=== PATIENT | male | born 1965 | race Caucasian/White ===

== ENCOUNTER 2016-12-01 05:00 | Inpatient (IN) | payer BC ==
[2016-12-01] VITALS (22 sets, daily range): BP systolic 107–148; BP diastolic 75–103; PULSE 66–82; RESP 9–20; Ht 182.9 cm; Wt 90.9 kg
[~2016-12-01] VITALS: Ht 182.9 cm; Wt 90.9 kg
[2016-12-01] MEDS ORDERED: ONDANSETRON 4 MG INJ IV STA (05:05)
[2016-12-01] MEDS ORDERED: morphine 4 MG/ML VIAL IV STA ×2 (05:05→05:23)
[2016-12-01] MEDS ORDERED: SOD CHLORIDE 0.9% 1,000 ML IV STA (05:05)
[2016-12-01 05:20] LABS: ADD SCAN DIFF NO
[2016-12-01 05:22] LABS: BASOPHIL # 0.1 10^3/ul (0.0-0.1); BASOPHILS % 1.2 % (0.0-2.0); EOSINOPHILS # 0.2 10^3/ul (0.0-0.5); HEMATOCRIT 35.5 % (42.0-52.0); HEMOGLOBIN 11.5 g/dl (14.0-18.0); LYMPHOCYTES # 3.4 10^3/ul (0.8-2.9); LYMPHOCYTES % 39.3 % (15.0-51.0); MEAN CORPUSCULAR HEMOGLOBIN 26.1 pg (29.0-33.0); MEAN CORPUSCULAR HGB CONC 32.4 g/dl (32.0-37.0); MEAN CORPUSCULAR VOLUME 80.5 fl (82.0-101.0); MEAN PLATELET VOLUME 10.9 fl (7.4-10.4); MONOCYTE # 0.7 10^3/ul (0.3-0.9); MONOCYTES % 7.7 % (0.0-11.0); NEUTROPHIL # 4.2 10^3/ul (1.6-7.5); NEUTROPHILS % 49.3 % (39.0-77.0); PLATELET COUNT 263 10^3/UL (140-415); RED BLOOD COUNT 4.41 10^6/ul (4.70-6.10); RED CELL DISTRIBUTION WIDTH 12.4 % (11.5-14.5); WHITE BLOOD COUNT 8.6 10^3/ul (4.8-10.8)
--- NOTE | 2016-12-01 05:26 | ERA ---
ER Documentation Chief Complaint Date/Time DATE: 12/01/16 TIME: 05:19 Chief Complaint KEON CHUNG from home c/o chest pressure pain on & off since yesterday HPI This is a 51-year-old male brought in by rescue from home with complaints of chest pressure on and off since yesterday. Said today it woke him up and he was cool and diaphoretic. Field EKG read as STEMI. Patient on aspirin and nitro in the field. Mild shortness of breath. Code STEMI called immediately. Dr. Lee notified. ROS All systems reviewed and are negative except as per history of present illness. Allergies Allergies: Coded Allergies: No Known Allergy (Unverified , 12/01/16) PMhx/Soc History of Surgery: No Anesthesia Reaction: No Hx Neurological Disorder: No Hx Respiratory Disorders: No Hx Cardiac Disorders: Yes (HTN) Hx Psychiatric Problems: No Hx Miscellaneous Medical Probl: No Hx Alcohol Use: Yes Hx Substance Use: No Hx Tobacco Use: No Smoking Status: Former smoker Physical Exam Vitals Vital Signs Date Time Temp Pulse Resp B/P Pulse Ox O2 Delivery O2 Flow Rate FiO2 12/01/16 05:13 100 3.0 12/01/16 05:11 Nasal Cannula 2 12/01/16 05:06 97.6 73 15 145/97 98 Physical Exam Const: [] Head: Atraumatic Eyes: Normal Conjunctiva ENT: Normal External Ears, Nose and Mouth. Neck: Full range of motion..~ No meningismus. Resp: Clear to auscultation bilaterally Cardio: Regular rate and rhythm, no murmurs Abd: Soft, non tender, non distended. Normal bowel sounds Skin: No petechiae or rashes Back: No midline or flank tenderness Ext: No cyanosis, or edema Neur: Awake and alert Psych: Normal Mood and Affect Results 24 hrs Current Medications Medications (Trade) Dose Ordered Sig/Azar Route PRN Reason Start Time Stop Time Status Last Admin Dose Admin Sodium Chloride (NS) 1,000 ml @ 1,000 mls/hr Q1H STAT IV 12/01/16 05:05 12/01/16 06:04 12/01/16 05:16 Morphine Sulfate (morphine) 4 mg ONCE STAT IV 12/01/16 05:05 12/01/16 05:07 DC 12/01/16 05:16 Ondansetron HCl (Zofran Inj) 4 mg ONCE STAT IV 12/01/16 05:05 12/01/16 05:07 DC 12/01/16 05:16 Procedures/MDM EKG: Rate/Rhythm: [Normal Sinus Rhythm] QRS, ST, T-waves: [No changes consistent w/ acute ischemia] Impression: ST elevations in 2 3 and aVF Chest X-ray 1V Interpreted by me: Soft Tissue: No acute abnormalities Bones: No acute abnormalities Mediastinum/Cardiac Silhouette/Lungs: [No acute abnormalities] Patient's symptoms are concerning for cardiac cause will require inpatient workup and continuous monitoring. Further w/u for ischemia, arrhythmia, PE or dissection will be deferred to the inpatient team. Patient will be taken to [facility] by on-call cardiology Accepting Care Team: Current data and ongoing care discussed. Time: 5:20 AM Primary Provider: Dr. Dukes Consulting: Dr. Lee Outstanding Data: none Critical Care: Time: 45 minutes Treatments/Evaluations: Close monitoring and treatment of unstable vital signs, cardiorespiratory, and neurologic status, while maintaining tight balance of fluid, respiratory, and cardiac interventions. This time is s independent from separate billable procedures Departure Diagnosis: Primary Impression: Chest pain Qualified Code: I20.0 - Unstable angina pectoris Additional Impression: STEMI (ST elevation myocardial infarction) Qualified Code: I21.11 - ST elevation myocardial infarction involving right coronary artery Condition: Critical LEAH CAMARA Dec 01, 2016 05:25
[2016-12-01] MEDS ORDERED: LIDOCAINE 1% (MDV) 20 ML INJ ONE (05:27)
[2016-12-01] MEDS ORDERED: IODIXANOL LOCM 100 ML BTL ONE ×2 (05:27→06:34)
[2016-12-01] MEDS ORDERED: NITROGLYCERIN (IC) 100 MCG/ML INJ ONE (05:28)
--- NOTE | 2016-12-01 05:29 | RADRPT ---
PROCEDURE: XR Chest. CLINICAL INDICATION: Chest pain. Acute DE. TECHNIQUE: Portable single view of the chest COMPARISON: None. FINDINGS: Shallow lung inflation accentuates the heart size which may be slightly enlarged. There is mild pul monary vascular congestion without focal infiltrate or pleural effusion. No overt congestive heart failure. No definite acute bony abnormality. IMPRESSION: Probable mild cardiomegaly and pulmonary vascular congestion. RPTAT: HLBE Hiwot Hampton Physician Date Time Electronically viewed and signed by Hiwot Hampton Physician on 12/01/2016 05:28 LE/
[2016-12-01] MEDS ORDERED: VERAPAMIL 5 MG INJ ONE (05:35)
[2016-12-01] MEDS ORDERED: HEPARIN 1000 UNITS/ML 10 ML INJ ONE (05:35)
[2016-12-01 05:41] LABS: INR 0.9; PROTIME 12.1 Sec (12.2-14.2); PT RATIO 0.9
[2016-12-01 05:42] LABS: PARTIAL THROMBOPLASTIN TIME 25.1 Sec (25.0-35.0)
[2016-12-01 05:44] LABS: ALBUMIN 4.4 g/dl (3.3-4.9); ALBUMIN/GLOBULIN RATIO 1.46; BILIRUBIN,INDIRECT 0.1 mg/dl (0-1.1); BILIRUBIN,TOTAL 0.1 mg/dl (0.2-1.3); CALCIUM 9.1 mg/dl (8.4-10.2); CREATININE 0.89 mg/dl (0.61-1.24); POTASSIUM 3.7 mmol/L (3.5-5.1); TOTAL PROTEIN 7.4 g/dl (6.1-8.1)
[2016-12-01] MEDS ORDERED: FENTAnyl 50 MCG/ML VIAL ONE (05:51)
[2016-12-01] MEDS ORDERED: MIDAZOLAM 1 MG/ML 2 ML INJ ONE (05:51)
--- NOTE | 2016-12-01 05:52 | CONS ---
Date/Time of Note Date/Time of Note DATE: 12/01/16 TIME: 05:47 Assessment/Plan Assessment/Plan Chief Complaint/Hosp Course 51 yo with stemi of inferior wall Problems: Additional Assessment/Plan Imp: STEMI inferior wall htn and hchol controlled with diet occasional smoker Plan: cath and pci. Risks and benefits reviewed and he agrees to proceed, all questions answered. Further plans to come after cath. He has gotten asa, will give heparin in the cardiac cath rn Will get statin therapy, beta blockade, and counseling on lifestyle, diet, exercise Consultation Date/Type/Reason Admit Date/Time 12/01/16 Date of Consultation: Dec 01, 2016 Type of Consultation: interventional cardiology Reason for Consultation stemi Referring Provider: LEAH CAMARA Hx of Present Illness 51 yo with very strong family history of cad (father of mi at 55, brother with multiple mi's starting at 35) presents with stuttering chest pain that started at 2 pm yesterday, persistent this morning, a/w diaphoresis and vomiting. Pain present now. Has h/o htn and dyslipidemia treated with diet alone. He smokes socially, last cigarette 2 months ago. Constitutional: no complaints Eyes: no complaints ENT: no complaints Respiratory: no complaints Cardiovascular: chest pain Gastrointestinal: vomiting Genitourinary: no complaints Musculoskeletal: no complaints Skin: no complaints Neurologic: no complaints Endocrine: no complaints Psychological: nl mood/affect, no complaints Past Medical History Medical History: high cholesterol, hypertension Past Surgical History Past Surgical Hx: no surgical history Family History Significant Family History: heart disease Social History Smoking Status: Current some day smoker Exam/Review of Systems Vital Signs Vitals Vital Signs Date Time Temp Pulse Resp B/P Pulse Ox O2 Delivery O2 Flow Rate FiO2 12/01/16 05:35 69 20 131/91 100 Nasal Cannula 2.0 12/01/16 05:06 97.6 Exam Constitutional: alert, oriented, well developed Psych: nl mood/affect, no complaints Head: atraumatic, normocephalic Eyes: EOMI, PERRL, nl conjunctiva, nl lids, nl sclera ENMT: nl external ears & nose, nl lips & teeth, nl nasal mucosa & septum Neck: supple, No bruits, No jvd Respiratory: clear to auscultation, normal air movement Cardiovascular: nl pulses, regular rate and rhythm, No jugular venous distention (JVD), No murmurs/extra sounds Gastrointestinal: nl liver, spleen, non-tender, soft Musculoskeletal: nl extremities to inspection Extremities: normal pulses Neurological: MAIL EXAMINER II-XII intact, nl mental status, nl speech, nl strength Skin: nl turgor, No rash or lesions Lymph: nl lymph nodes Results ekg shows st elevations in 2, 3, AVF, in nsr Result Diagram: 12/01/16 0455 Results 24 hrs Laboratory Tests Test 12/01/16 04:55 White Blood Count 8.6 Red Blood Count 4.41 L Hemoglobin 11.5 L Hematocrit 35.5 L Mean Corpuscular Volume 80.5 L Mean Corpuscular Hemoglobin 26.1 L Mean Corpuscular Hemoglobin Concent 32.4 Red Cell Distribution Width 12.4 Platelet Count 263 Mean Platelet Volume 10.9 H Neutrophils % 49.3 Lymphocytes % 39.3 Monocytes % 7.7 Eosinophils % 2.0 Basophils % 1.2 Nucleated Red Blood Cells % 0.0 Neutrophils # 4.2 Lymphocytes # 3.4 H Monocytes # 0.7 Eosinophils # 0.2 Basophils # 0.1 Nucleated Red Blood Cells # 0.0 Prothrombin Time 12.1 L Prothrombin Time Ratio 0.9 INR International Normalized Ratio 0.90 Activated Partial Thromboplast Time 25.1 ROBERT SANTIAGO Dec 01, 2016 05:52
[2016-12-01 06:03] LABS: TROPONIN-I 0.253 ng/ml (0.00-0.12)
[2016-12-01] MEDS ORDERED: morphine 10 MG INJ ONE (06:08)
[2016-12-01] MEDS ORDERED: IODIXANOL LOCM 50 ML BTL ONE (06:13)
[2016-12-01] MEDS ORDERED: METOPROLOL 5 MG INJ ONE (06:20)
[2016-12-01] MEDS ORDERED: PRASUGREL HYDROCHLORIDE 10 MG TABLET PO ONE (06:53)
--- NOTE | 2016-12-01 07:17 | HP ---
Date/Time of Note Date/Time of Note DATE: 12/01/16 TIME: 07:03 Assessment/Plan VTE Prophylaxis VTE Prophylaxis Intervention: heparin, other Lines/Catheters IV [facility]ter [facility]from [facility] Saline Lock Assessment/Plan Chief Complaint/Hosp Course This is a 51-year-old male will be admitted to the ICU floor for: #1 STEMI: Aspirin was given in the ED. EKG shows ST elevations in the inferior leads II and aVF. STEMI protocol was initiated, interventional cardiology is on the way and patient patient will be taken to the [facility]. Awaiting troponin level continue to trend. Further recommendations as per cardiology after the cath. Patient will be admitted to the ICU after undergoing his cardiac cath. #2 hypertension: Not on any outpatient medications. Will continue to monitor blood pressure while in-house and start on any medications if indicated. #3 hyperlipidemia: Currently not on medications likely will need to be started on his high-dose statin. #4 DVT and GI prophylaxis: Anticoagulation as per cardiology, Protonix. Further treatment strategy will be implemented as per the clinical course Greater than 40 minutes of critical care time was spent on history and physical and assessment and plan this patient. Problems: HPI/ROS Admit Date/Time Admit Date/Time 12/01/16 Hx of Present Illness Chief complaint: Chest pain This is a 51 yo male who presents to the ED with chest pain that started yesterday at approximately 2 PM. He states that he first noticed it when he was driving his car. He then in felt that again later on it was a pressure- like sensation that radiated to bilateral shoulders. He experienced diaphoresis and nausea and vomiting. He has a very strong family history of cad with his father who of mi at 55, brother with multiple mi's starting at 35. Patient states that he was given nitro and morphine he did receive relief in the ED. He right now continues to have pain which is 6 out of 10. Allergies: NKDA Medications: None ROS Const: As per Eyes : No pain discharge or redness or change in visual acuity ENT: No pain, sore throat, congestion, congestion, dysphagia or discharge Respiratory: As per HPI Cardiovascular: As per HPI GI : no change in appetite, abdominal pain, nausea, vomiting, diarrhea, constipation, or change in the color his stool Genitourinary: No dysuria, hematuria, flank pain , discharge or CVA tenderness Musculoskeletal: No joint pain, back pain, neck pain, restricted range of motion in neck or joints Skin: No rash, bruising or hives Neuro: No headache, dizziness, syncope, seizure, focal weakness Endocrine: No polyuria, polydipsia, temperature intolerance Psych: No hallucination, depression, anxiety or suicidal ideation Eyes: no complaints ENT: no complaints Respiratory: no complaints Cardiovascular: chest pain Gastrointestinal: vomiting Genitourinary: no complaints Musculoskeletal: no complaints Skin: no complaints Neurologic: no complaints Psychological: nl mood/affect, no complaints PMH/Family/Social Past Medical History Hypertension, hyperlipidemia Medical History: high cholesterol, hypertension Past Surgical History Past Surgical Hx: no surgical history Family History Significant Family History: heart disease (Father IA 2, brother heart disease) Social History Alcohol Use: none Smoking Status: Current some day smoker Drug Use: none Exam/Review of Systems Vital Signs Vitals Vital Signs Date Time Temp Pulse Resp B/P Pulse Ox O2 Delivery O2 Flow Rate FiO2 12/01/16 05:35 69 20 131/91 100 Nasal Cannula 2.0 12/01/16 05:06 97.6 Exam Exam General: Patient is well-developed male who appears mildly anxious and complaining of chest pressure. HEENT: Atraumatic, normocephalic. The pupils are equal, round and reactive. Extraocular motor are intact Neck: Supple with full range of motion. No rigidity or meningismus Chest: Nontender Lungs: Clear to auscultation bilaterally no crackles rales or wheezing Heart: Normal S1-S2, Regular rhythm and rate. No murmur, S3, or S4 Abdomen: Soft , nontender, nondistended , bowel sounds are present. No guarding no rebound tenderness , No masses or organomegaly. No costovertebral temporal angle mass Extremities: Normal to inspection, no edema no cyanosis Neurologic: Normal mental status, speech normal, cranial nerves II through XII are intact, motor and sensory are intact, no focal weakness Additional Comments EKG ST elevations in 2 3 and aVF, normal sinus rhythm PROCEDURE: XR Chest. CLINICAL INDICATION: Chest pain. Acute IA. TECHNIQUE: Portable single view of the chest COMPARISON: None. FINDINGS: Shallow lung inflation accentuates the heart size which may be slightly enlarged. There is mild pulmonary vascular congestion without focal infiltrate or pleural effusion. No overt congestive heart failure. No definite acute bony abnormality. IMPRESSION: Probable mild cardiomegaly and pulmonary vascular congestion. Labs Result Diagram: 12/01/16 0455 12/01/16 0455 CAN PERES Dec 01, 2016 07:13
--- NOTE | 2016-12-01 07:34 | EN ---
Date/Time of Note Date/Time of Note DATE: 12/01/16 TIME: 07:26 Event Note Cardiology Cardiology Event Note Cardiac Catheterization Report Date of Procedure: December 01, 2016 Pre-Procedure Dx: STEMI of the inferior wall Post-Procedure Dx: STEMI of inferior wall due to occlusion of proximal RCA Procedures performed: Coronary angiography, left heart catheterization, left ventriculography, angioplasty and stent placement to the proximal RCA Findings: Left main normal LAD normal proximally. It tapers down quite suddenly in the mid portion. A small to moderate sized diagonal branch has an 80% mid lesion. LCX is small and nondominant, with a 50% lesion proximally The right coronary is completely occluded. The lesion is proximal, and is a heavily calcified lesion. Preprocedure gilda 0, postprocedure gilda 3. 100% occluded before, 0% occluded after. This is a type C lesion due to heavy calcification requiring multiple balloon inflations including noncompliant balloons. A 3.5 x 16 mm drug-eluting stent was placed. LVEDP was 26. LVEF 60% with inferobasal akinesis. Indications: Patient presented with chest pain starting yesterday, was stuttering in nature, and persistent this morning. EKG shows ST elevations in inferior leads with reciprocal changes. Informed consent obtained. Patient received sedation with versed and fentanyl. Then access obtained in right radial artery after Bolivar's test, modified Seldinger technique used, 6F sheath placed. Through the sheath, heparin 4000 units, verapamil 2.5 mg and ntg 200 mcg given. Using a J-wire, Edwin catheter advanced to the aortic root, engaged the LM, and then a JR4 guide used to engage the RCA. Images taken with injection of contrast. It was decided to intervene on the right coronary. An additional 3000 units of heparin given, ACT checked, and the patient received a total of 9000 units of heparin duringi the procedure. A JR4 catheter was used. A Luge wire passed through the lesion, and dilated with a 2.5x12 mm balloon. A stent would not pass, and multiple balloon inflations, including several noncompliant balloons, up to a 3.5x15 mm balloon, were required to dilate the lesion. After balloon dilations, there was a small dissection visualized, but that was covered with the stent. A 3.5 x 16 mm drug-eluting stent was placed. Images obtained including a wire out shot demonstrating good apposition of the stent and gilda 3 flow. Then left ventriculography performed, pullback gradient measured. All catheter exchanges done over a 260-cm J wire. At the end of the case, the radial sheath was removed and replaced with a TR band. Patient loaded with Effient 60 mg at the end of the case. Discussion: STEMI due to occlusion of the right coronary artery, hypertension and dyslipidemia with medication noncompliance at home. Drug-eluting stent placed to the proximal RCA. Plan is for admission, observation overnight, and likely discharge tomorrow on 12/02/16. ROBERT SANTIAGO Dec 01, 2016 07:34
[2016-12-01 08:00] LABS: CHOL/HDL RATIO 6.1 RATIO
[2016-12-01] MEDS ORDERED: ASPIRIN 81 MG TAB PO ONE (08:30)
[2016-12-01] MEDS ORDERED: SOD CHLORIDE 0.9% 500 ML IV SCH (08:30)
[2016-12-01] MEDS: VALSARTAN 80 MG TAB PO SCH (08:49)
[2016-12-01] MEDS ORDERED: METOPROLOL (XL) 25 MG TAB PO SCH (09:00)
[2016-12-01] MEDS: ASPIRIN 81 MG TAB PO SCH (09:00)
--- NOTE | 2016-12-01 20:12 | RADRPT ---
Echocardiogram Report Patient Name: LORRAINE GUZMAN Gender: Male Date: 1965 Study Date: 01-Dec-2016 Automation Architect: Taryn [facility] Location: 109 Ref. Physician: CAN PERES Quality: Adequate Procedures: Transthoracic echocardiogram with complete 2D, M-Mode, and doppler examination. Indications: STEMI. 2D/M Mode Doppler Measurement Value Normal Ranges Measurement Value Normal Ranges LVIDd 2D 4.8 3.5 - 5.6 cm AV Peak Marvin 1.2 m/sec LVIDs 2D 3.5 2.1 - 4.1 cm AV Peak PG 6.0 mmHg FS 2D 27.6 % LVOT Peak Marvin 1.0 m/sec LVPWd 2D 1.0 0.6 - 1.1 cm LVOT Peak PG 4.0 mmHg IVSd 2D 1.1 0.6 - 1.1 cm MR Peak PG 40.0 mmHg IVS/LVPW 2D 1.1 MR Peak Marvin 3.2 m/sec AoR Diam 2D 2.4 2.0 - 3.7 cm TR Peak Marvin 1.5 m/sec LA/Ao 2D 2 0 - 1 TR Peak PG 9.0 mmHg EDV 2D 112.0 cm3 ESV 2D 42.5 cm3 LA Dimen 2D 4.4 2.3 - 4.0 cm Findings Left Ventricle: Normal left ventricular systolic function. Normal left ventricular cavity size. Ejection fraction is visually estimated at 55 %. Tissue Doppler/Mitral Doppler indices are consistent with impaired relaxation (Stage I diastolic dysfunction). These segments of the LV are hypokinetic inferior base segment and inferior mid segment. Right Ventricle: Normal right ventricular size. Normal right ventricular systolic function. Left Atrium: There is mild enlargement of left atrium. Right Atrium: The right atrium is normal in size. Mitral Valve: Mild mitral leaflet calcification. Mild mitral annular calcification. Mild mitral valve regurgitation. Aortic Valve: Aortic cusps appear mildly calcified. Aortic valve opens normally. Trace aortic valve regurgitation. Tricuspid Valve: Normal appearance and function of the tricuspid valve with trace physiologic regurgitation. Pulmonic Valve: Pulmonic valve not well visualized. There is trace pulmonic regurgitation. Pericardium: Normal pericardium with no significant pericardial effusion. Aorta: Normal aortic root. IVC: Normal size and normal respiratory collapse consistent with normal right atrial pressure. Conclusions Fair quality study. Normal left ventricular systolic function. Inferobasal hypokinesis Mild mitral regurgitation. Electronically Signed By: Alla Kumari 01-Dec-2016 20:11:45 -0700 Patient Name: LORRAINE GUZMAN Study Date: 01-Dec-2016 [id number]
[2016-12-01] MEDS ORDERED: ATORVASTATIN 80 MG TAB PO SCH (21:00)
[2016-12-02] VITALS (12 sets, daily range): BP systolic 108–130; BP diastolic 73–91; PULSE 71–89; RESP 15–19
[2016-12-02 05:07] LABS: ADD SCAN DIFF NO
[2016-12-02 05:14] LABS: BASOPHIL # 0.1 10^3/ul (0.0-0.1); BASOPHILS % 0.6 % (0.0-2.0); EOSINOPHILS # 0.1 10^3/ul (0.0-0.5); EOSINOPHILS % 1.7 % (0.0-7.0); HEMATOCRIT 33.4 % (42.0-52.0); HEMOGLOBIN 10.7 g/dl (14.0-18.0); LYMPHOCYTES # 2.8 10^3/ul (0.8-2.9); LYMPHOCYTES % 32.5 % (15.0-51.0); MEAN CORPUSCULAR HEMOGLOBIN 25.8 pg (29.0-33.0); MEAN CORPUSCULAR VOLUME 80.5 fl (82.0-101.0); MONOCYTE # 0.8 10^3/ul (0.3-0.9); MONOCYTES % 9.3 % (0.0-11.0); NEUTROPHIL # 4.7 10^3/ul (1.6-7.5); NEUTROPHILS % 55.7 % (39.0-77.0); PLATELET COUNT 261 10^3/UL (140-415); RED BLOOD COUNT 4.15 10^6/ul (4.70-6.10); WHITE BLOOD COUNT 8.5 10^3/ul (4.8-10.8)
[2016-12-02 05:25] LABS: MAGNESIUM 1.9 mg/dl (1.7-2.5); PHOSPHORUS 4.1 mg/dl (2.5-4.9)
[2016-12-02 05:47] LABS: CALCIUM 9.1 mg/dl (8.4-10.2); CREATININE 0.77 mg/dl (0.61-1.24); POTASSIUM 3.5 mmol/L (3.5-5.1)
[2016-12-02] MEDS ORDERED: PANTOPRAZOLE 40 MG INJ IV SCH (06:00)
[2016-12-02] MEDS: VALSARTAN 80 MG TAB PO SCH (08:06)
[2016-12-02] MEDS: ASPIRIN 81 MG TAB PO SCH (08:06)
[2016-12-02] MEDS ORDERED: METOPROLOL (XL) 50 MG TAB PO SCH (09:00)
[2016-12-02] MEDS ORDERED: PRASUGREL HYDROCHLORIDE 10 MG TABLET PO SCH ×2 (09:00)
--- NOTE | 2016-12-02 09:58 | PN ---
Date/Time of Note Date/Time of Note DATE: 12/02/16 TIME: 09:54 Assessment/Plan VTE Prophylaxis VTE Prophylaxis Intervention: ambulation Lines/Catheters IV Catheter Type (from Nrs): Peripheral IV Assessment/Plan Chief Complaint/Hosp Course 51 yo with stemi of inferior wall Problems: Assessment/Plan Imp: Inferior wall STEMI, post pci/stent to prox RCA Hypertension, controlled Dyslipidemia with low HDL and high tg's. ASA and Effient for one year. Explained importance of dual antiplatelet therapy to keep stent open Atorvastatin 80, metoprolol xl 50 daily, valsartan 80 mg daily Reiterated importance of medication compliance, if issues or side effects perceived from the medicines he should let me know before stopping a medicine Counselled him extensively on lifestyle, exercise, plant-based diet Okay for discharge today, follow with me in 1-2 weeks Patient has stent card for Realeyes 3D stent, also has my business card for my [place] office. Subjective 24 Hr Interval Summary Free Text/Dictation Slight twinges of pain overnight, no events. No discomfort at wrist cath site. Exam/Review of Systems Vital Signs Vitals Vital Signs Date Time Temp Pulse Resp B/P Pulse Ox O2 Delivery O2 Flow Rate FiO2 12/02/16 08:00 81 15 124/91 96 Room Air 12/02/16 07:00 97.7 12/01/16 05:35 2.0 Intake and Output 12/01/16 12/01/16 12/02/16 15:00 23:00 07:00 Intake Total 480 ml 600 ml 250 ml Output Total 700 ml 1000 ml 950 ml Balance -220 ml -400 ml -700 ml Exam Constitutional: alert, oriented, well developed Psych: nl mood/affect, no complaints Head: atraumatic, normocephalic Eyes: EOMI, PERRL, nl conjunctiva, nl lids, nl sclera ENMT: nl external ears & nose, nl lips & teeth, nl nasal mucosa & septum Neck: supple, No bruits, No jvd Respiratory: clear to auscultation, normal air movement Cardiovascular: nl pulses (right radial pulse intact, hand warm, good information systems specialist strength), regular rate and rhythm Gastrointestinal: nl liver, spleen, non-tender, soft Musculoskeletal: nl extremities to inspection Extremities: normal pulses, No edema Neurological: nl mental status, nl speech Skin: nl turgor, No rash or lesions Results Result Diagram: 12/02/16 0440 12/02/16 0440 Results 24 hrs Laboratory Tests Test 12/02/16 04:40 White Blood Count 8.5 Red Blood Count 4.15 L Hemoglobin 10.7 L Hematocrit 33.4 L Mean Corpuscular Volume 80.5 L Mean Corpuscular Hemoglobin 25.8 L Mean Corpuscular Hemoglobin Concent 32.0 Red Cell Distribution Width 13.0 Platelet Count 261 Mean Platelet Volume 11.0 H Neutrophils % 55.7 Lymphocytes % 32.5 Monocytes % 9.3 Eosinophils % 1.7 Basophils % 0.6 Nucleated Red Blood Cells % 0.0 Neutrophils # 4.7 Lymphocytes # 2.8 Monocytes # 0.8 Eosinophils # 0.1 Basophils # 0.1 Nucleated Red Blood Cells # 0.0 Sodium Level 143 Potassium Level 3.5 Chloride Level 101 Carbon Dioxide Level 27 Anion Gap 19 #H Blood Urea Nitrogen 11 # Creatinine 0.77 Glucose Level 100 Hemoglobin A1c 5.5 Calcium Level 9.1 Phosphorus Level 4.1 Magnesium Level 1.9 Troponin I 7.470 *H Medications Medications Current Medications Pantoprazole (Protonix Iv) 40 mg DAILY@06 IV ; Start 12/02/16 at 06:00 Miscellaneous Information (* Miscellaneous Pharmacy Order) Hold all Metformin ... ONCE XX Last administered on 12/01/16 07:58; Admin Dose 1 EA; Start at 07:30; Stop 12/03/16 at 07:29 Aspirin (Aspirin) 81 mg DAILY PO Last administered on 12/02/16 08:06; Admin Dose 81 MG; Start 12/01/16 at 09:00 Atorvastatin Calcium (Lipitor) 80 mg HS PO Last administered on 12/01/16 21:00 ; Admin Dose 80 MG; Start 12/01/16 at 21:00 Valsartan (Diovan) 80 mg DAILY PO Last administered on 12/02/16 08:06; Admin Dose 80 MG; Start 12/01/16 at 09:00 Prasugrel (Effient) 10 mg DAILY PO Last administered on 12/02/16 08:06; Admin Dose 10 MG; Start 12/02/16 at 09:00 Metoprolol Succinate (Toprol Xl) 50 mg DAILY PO Last administered on 12/02/16 08:05; Admin Dose 50 MG; Start 12/02/16 at 09:00 Procedures Procedures Echo shows normal LVEF, focal hypokinesis of the inferior base. EKG this am demonstrates NSR, ST elevations resolved ROBERT SANTIAGO Dec 02, 2016 09:58
--- NOTE | 2016-12-02 10:04 | PDOCDIS ---
Discharge Instructions CONDITION Patient Condition: Good HOME CARE INSTRUCTIONS: Diet Instructions: Reduced Calorie ACTIVITY: Activity Restrictions: No Restrictions FOLLOW UP/APPOINTMENTS Follow-up Plan F/U WITH YOUR PCP IN 1-2 WEEKS, F/U WITH CARDIOLOGY INSTRUCTED KEVIN SUTHERLAND Dec 02, 2016 10:04
[2016-12-02] MEDS ORDERED: METO50TA16 PO (10:06)
[2016-12-02] MEDS ORDERED: ATOR80TA75 PO (10:06)
[2016-12-02] MEDS ORDERED: PRAS10TA6 PO (10:06)
[2016-12-02] MEDS ORDERED: VALS80TA29 PO (10:06)
[2016-12-02] MEDS ORDERED: ASPI81TA3 PO (10:06)
--- NOTE | 2016-12-02 13:56 | DS ---
Date/Time of Note Date/Time of Note DATE: 12/02/16 TIME: 13:55 Discharge Summary Admission/Discharge Info Admit Date/Time Dec 01, 2016 at 07:57 Discharge Date/Time Dec 02, 2016 at 11:20 Discharge Diagnosis Inferior wall STEMI, post pci/stent to prox RCA-DC with cardiac meds Hypertension, controlled-DC with Diovan and beta-nicky Dyslipidemia with low HDL and high tg's-DC with high-dose statin Patient Condition: Good Hospital Course Patient is 51-year-old male presents with chest pain was found to have STEMI patient found to have RCA occlusion and had stent placement. Patient started on cardiac meds felt to be stable for DC per cardiology. On the of DC patient' s vitals labs and physical exam stable. Of note patient echo showed EF 55% with some hypokinesis in the inferior wall. Home Meds Active Scripts Aspirin (Aspirin) 81 Mg Chew, 81 MG PO DAILY, #90 TAB 3 Refills Prov:KEVIN SUTHERLAND 12/02/16 Valsartan (Valsartan) 80 Mg Tablet, 80 MG PO DAILY, #60 TAB 1 Refill Prov:KEVIN SUTHERLAND 12/02/16 Metoprolol Succinate* (Toprol XL*) 50 Mg Tab.er.24h, 50 MG PO DAILY, #60 1 Refill Prov:KEVIN SUTHERLAND 12/02/16 Atorvastatin* (Atorvastatin*) 80 Mg Tablet, 80 MG PO HS, #60 TAB 1 Refill Prov:KEVIN SUTHERLAND 12/02/16 Prasugrel Hydrochloride* (Effient*) 10 Mg Tablet, 10 MG PO DAILY, #60 TAB 3 Refills Prov:KEVIN SUTHERLAND 12/02/16 Primary Care Provider Aden Andrade Time spent on discharge: > 30 minutes Pending Labs Laboratory Tests Test 12/02/16 04:40 White Blood Count 8.510^3/ul (4.8-10.8) Red Blood Count 4.1510^6/ul (4.70-6.10) Hemoglobin 10.7g/dl (14.0-18.0) Hematocrit 33.4% (42.0-52.0) Mean Corpuscular Volume 80.5fl (82.0-101.0) Mean Corpuscular Hemoglobin 25.8pg (29.0-33.0) Mean Corpuscular Hemoglobin Concent 32.0g/dl (32.0-37.0) Red Cell Distribution Width 13.0% (11.5-14.5) Platelet Count 05035^3/UL (140-415) Mean Platelet Volume 11.0fl (7.4-10.4) Neutrophils % 55.7% (39.0-77.0) Lymphocytes % 32.5% (15.0-51.0) Monocytes % 9.3% (0.0-11.0) Eosinophils % 1.7% (0.0-7.0) Basophils % 0.6% (0.0-2.0) Nucleated Red Blood Cells % 0.0/100WBC (0.0-0.0) Neutrophils # 4.710^3/ul (1.6-7.5) Lymphocytes # 2.810^3/ul (0.8-2.9) Monocytes # 0.810^3/ul (0.3-0.9) Eosinophils # 0.110^3/ul (0.0-0.5) Basophils # 0.110^3/ul (0.0-0.1) Nucleated Red Blood Cells # 0.010^3/ul (0.0-0.0) Sodium Level 143mmol/L (135-144) Potassium Level 3.5mmol/L (3.5-5.1) Chloride Level 101mmol/L (97-110) Carbon Dioxide Level 27mmol/L (21-31) Anion Gap 19 (8-16) Blood Urea Nitrogen 11mg/dl (7-20) Creatinine 0.77mg/dl (0.61-1.24) Glucose Level 100mg/dl (70-220) Hemoglobin A1c 5.5% (0-5.9) Calcium Level 9.1mg/dl (8.4-10.2) Phosphorus Level 4.1mg/dl (2.5-4.9) Magnesium Level 1.9mg/dl (1.7-2.5) Troponin I 7.470ng/ml (0.00-0.12) KEVIN SUTHERLAND Dec 02, 2016 13:56 (0.61-1.24) Glucose Level 100mg/dl (70-220) Hemoglobin A1c 5.5% (0-5.9) Calcium Level 9.1mg/dl (8.4-10.2) Phosphorus Level 4.1mg/dl (2.5-4.9) Magnesium Level 1.9mg/dl (1.7-2.5) Troponin I 7.470ng/ml (0.00-0.12) KEVIN SUTHERLAND Dec 02, 2016 13:56
--- NOTE | 2016-12-03 11:09 | RADRPT ---
Vent Rate: 71 bpm RR Interval: 0 msec [place] Interval: 184 msec QRS Duration: 96 msec QT Interval: 400 msec QTC Interval: 434 msec P-R-T [place]: 22 - 26 - 37 degrees Normal sinus rhythm Inferior infarct , possibly acute Abnormal ECG Electronically Signed By: Bhupinder Zamora [id number]
--- NOTE | 2016-12-03 11:10 | RADRPT ---
Vent Rate: 75 bpm RR Interval: 0 msec [place] Interval: 198 msec QRS Duration: 96 msec QT Interval: 402 msec QTC Interval: 448 msec P-R-T [place]: 44 - 23 - 4 degrees Normal sinus rhythm Normal ECG Electronically Signed By: Bhupinder Zamora [id number]
== END 2016-12-02 11:20 | disposition home or self-care (01) | DRG 247 ==
LOC: E/R 05:00 → ICU 07:57
PROVIDERS: ADMIT Family Medicine; ATTEND Family Medicine
PROC: 4A023N7 Measurement of Cardiac Sampling and Pressure, Left Heart, Percutaneous Approach (ICD-10-PCS; 2016-12-01)
PROC: 027034Z Dilation of Coronary Artery, One Artery with Drug-eluting Intraluminal Device, Percutaneous Approach (ICD-10-PCS; principal; 2016-12-01 05:45)
DX: I21.3 ST elevation (STEMI) myocardial infarction of unspecified site (principal); I10 Essential (primary) hypertension; F17.200 Nicotine dependence, unspecified, uncomplicated; E78.5 Hyperlipidemia, unspecified
CPT/HCPCS: 36415; 71010; 80048; 80053; 80061; 83036; 83735; 83880; 84100; 84484; 85025; 85610; 85730; 87081; 93005; 93306; 96374; 96375; C1725; C1769; C1874; C1887; C9113; C9606; J1644; J2250; J2270; J2405; J3010; J7030; Q9967

== ENCOUNTER 2017-02-06 09:43 | Emergency (ER) | payer BC ==
[~2017-02-06] VITALS: Ht 182.9 cm; Wt 89.0 kg
[~2017-02-06 09:43] MED LIST: ASPI81TA3 PO; ATOR80TA75 PO; METO50TA16 PO; PRAS10TA6 PO; VALS80TA29 PO
[2017-02-06 09:46] VITALS: Ht 182.9 cm; Wt 89.0 kg
[2017-02-06 10:57] LABS: ABNORMAL IP MESSAGE 1; BASOPHIL # 0.1 10^3/ul (0.0-0.1); BASOPHILS % 1.1 % (0.0-2.0); EOSINOPHILS # 0.2 10^3/ul (0.0-0.5); EOSINOPHILS % 3.4 % (0.0-7.0); HEMOGLOBIN 7.8 g/dl (14.0-18.0); LYMPHOCYTES # 2.1 10^3/ul (0.8-2.9); LYMPHOCYTES % 32.2 % (15.0-51.0); MEAN CORPUSCULAR HEMOGLOBIN 21.3 pg (29.0-33.0); MEAN CORPUSCULAR HGB CONC 28.9 g/dl (32.0-37.0); MEAN CORPUSCULAR VOLUME 73.6 fl (82.0-101.0); MONOCYTE # 0.7 10^3/ul (0.3-0.9); MONOCYTES % 10.2 % (0.0-11.0); NEUTROPHILS % 52.8 % (39.0-77.0); PLATELET COUNT 319 10^3/UL (140-415); POSITIVE DIFF @See below; RED BLOOD COUNT 3.67 10^6/ul (4.70-6.10); RED CELL DISTRIBUTION WIDTH 14.7 % (11.5-14.5); WHITE BLOOD COUNT 6.6 10^3/ul (4.8-10.8)
[2017-02-06 11:15] LABS: ALBUMIN 3.9 g/dl (3.3-4.9); BILIRUBIN,INDIRECT 0.1 mg/dl (0-1.1); BILIRUBIN,TOTAL 0.1 mg/dl (0.2-1.3); CALCIUM 8.9 mg/dl (8.4-10.2); CREATININE 0.82 mg/dl (0.61-1.24); POTASSIUM 4.4 mmol/L (3.5-5.1); TOTAL PROTEIN 7.8 g/dl (6.1-8.1)
[2017-02-06 11:18] LABS: INR 0.93; PROTIME 12.5 Sec (12.2-14.2)
[2017-02-06 11:19] LABS: PARTIAL THROMBOPLASTIN TIME 26.2 Sec (25.0-35.0)
[2017-02-06 11:20] LABS: ADD UMIC NO; UR ASCORBIC ACID 20 mg/dL (NEGATIVE); UR BILIRUBIN (Dip) NEGATIVE (NEGATIVE); UR BLOOD (Dip) NEGATIVE (NEGATIVE); UR CLARITY CLEAR (CLEAR); UR COLOR YELLOW (YELLOW); UR GLUCOSE (Dip) NEGATIVE (NEGATIVE); UR KETONES (Dip) NEGATIVE (NEGATIVE); UR LEUKOCYTE ESTERASE (Dip) NEGATIVE Leu/ul (NEGATIVE); UR NITRITE (Dip) NEGATIVE (NEGATIVE); UR SPECIFIC GRAVITY (Dip) 1.019 (1.003-1.030); UR TOTAL PROTEIN (Dip) NEGATIVE (NEGATIVE); UR UROBILINOGEN (Dip) NEGATIVE (NEGATIVE)
[2017-02-06] MEDS ORDERED: ATOR80TA75 PO (12:15)
[2017-02-06] MEDS ORDERED: METO100T13 PO (12:16)
[2017-02-06] MEDS ORDERED: CLOP75TA27 PO (12:16)
[2017-02-06] MEDS ORDERED: PANTOPRAZOLE 40 MG INJ IV STA (12:50)
[2017-02-06] MEDS ORDERED: SOD CHLORIDE 0.9% 100 ML ONE (13:18)
[2017-02-06] MEDS ORDERED: IOHEXOL 300MG/ML 150 ML BTL ONE (13:18)
--- NOTE | 2017-02-06 13:41 | ERA ---
ER Documentation Chief Complaint Date/Time DATE: 02/06/17 TIME: 10:15 Chief Complaint pt bib self with c/o ap and low hgb , called by PMD yesterday <7 HPI 51-year-old male with a history of hypertension, dyslipidemia and inferior wall ST segment elevation myocardial infarction post PCI to the right coronary artery December 01, 2016 presents to the ED for evaluation of abdominal pain and anemia. Over the last 5 days he has experienced mild, generalized, crampy, nonradiating abdominal pain which localizes to the right greater than left lower quadrant. Denies nausea, vomiting but has had several episodes of watery , nonbloody, non-mucoid diarrhea. No hematemesis, hematochezia or melanotic stools. He was evaluated by his primary care physician on 02/03/2017, called last night and referred to the ED for hemoglobin of about 7 g/dL. Denies chest pain, shortness of breath or palpitations. Mild generalized weakness but no exertional dyspnea. Denies PND orthopnea. No leg pain or swelling. No skin rash or bruising. Denies anorexia, fevers, chills or night sweats. ROS All systems reviewed and are negative except as per history of present illness. Medications Home Meds Active Scripts Aspirin (Aspirin) 81 Mg Chew, 81 MG PO DAILY, #90 TAB 3 Refills Prov:KEVIN SUTHERLAND 12/02/16 Reported Medications Clopidogrel Bisulfate (Clopidogrel) 75 Mg Tablet, 75 MG PO DAILY, #30 TAB 02/06/17 Metoprolol Succinate* (Toprol XL*) 100 Mg Tab.sr.24h, 100 MG PO DAILY, #30 TAB 02/06/17 Atorvastatin* (Atorvastatin*) 80 Mg Tablet, 80 MG PO QHS, #[address] STOPPED FOR 2 WEEKS 02/06/17 Discontinued Scripts Valsartan (Valsartan) 80 Mg Tablet, 80 MG PO DAILY, #60 TAB 1 Refill Prov:KEVIN SUTHERLAND 12/02/16 Metoprolol Succinate* (Toprol XL*) 50 Mg Tab.er.24h, 50 MG PO DAILY, #60 1 Refill Prov:KEVIN SUTHERLAND 12/02/16 Atorvastatin* (Atorvastatin*) 80 Mg Tablet, 80 MG PO HS, #60 TAB 1 Refill Prov:KEVIN SUTHERLAND 12/02/16 Prasugrel Hydrochloride* (Effient*) 10 Mg Tablet, 10 MG PO DAILY, #60 TAB 3 Refills Prov:KEVIN SUTHERLAND 12/02/16 Allergies Allergies: Coded Allergies: No Known Allergy (Unverified , 02/06/17) PMhx/Soc Reviewed in chart. As per HPI. History of Surgery: No Anesthesia Reaction: No Hx Neurological Disorder: No Hx Respiratory Disorders: No Hx Cardiac Disorders: Yes (HTN, [place]) Hx Psychiatric Problems: No Hx Miscellaneous Medical Probl: No Hx Substance Use: No Hx Tobacco Use: No Smoking Status: Never smoker FmHx Reviewed in chart. As per HPI Physical Exam Vitals Vital Signs Date Time Temp Pulse Resp B/P Pulse Ox O2 Delivery O2 Flow Rate FiO2 02/06/17 09:46 98.3 64 16 118/77 98 Physical Exam Const: Alert, NAD Head: Atraumatic Eyes: Normal Conjunctiva ENT: Normal External Ears, Nose and Mouth. Neck: Full range of motion. No meningismus. Resp: Clear to auscultation bilaterally. No R/R/W. Cardio: Regular rate and rhythm, no murmurs Abd: Soft, mild diffuse lower abdominal tenderness. No rebound or guarding. Normal bowel sounds. Rectal. Normal Tone. Brown stool. Skin: No petechiae or rashes Back: No midline or flank tenderness Ext: No cyanosis, or edema Neur: Awake and alert. No focal deficit. Psych: Normal Mood and Affect Result Diagram: 02/06/17 1050 02/06/17 1050 Results 24 hrs Laboratory Tests Test 02/06/17 10:50 02/06/17 12:55 White Blood Count 6.610^3/ul Red Blood Count 3.6710^6/ul Hemoglobin 7.8g/dl Hematocrit 27.0% Mean Corpuscular Volume 73.6fl Mean Corpuscular Hemoglobin 21.3pg Mean Corpuscular Hemoglobin Concent 28.9g/dl Red Cell Distribution Width 14.7% Platelet Count 14733^3/UL Mean Platelet Volume 10.0fl Neutrophils % 52.8% Lymphocytes % 32.2% Monocytes % 10.2% Eosinophils % 3.4% Basophils % 1.1% Nucleated Red Blood Cells % 0.0/100WBC Neutrophils # (Manual) 3.510^3/ul Lymphocytes # 2.110^3/ul Monocytes # 0.710^3/ul Eosinophils # 0.210^3/ul Basophils # 0.110^3/ul Nucleated Red Blood Cells # 0.010^3/ul Prothrombin Time 12.5Sec Prothrombin Time Ratio 1.0 INR International Normalized Ratio 0.93 Activated Partial Thromboplast Time 26.2Sec Urine Color YELLOW Urine Clarity CLEAR Urine pH 5.0 Urine Specific [place] 1.019 Urine Ketones NEGATIVEmg/dL Urine Nitrite NEGATIVEmg/dL Urine Bilirubin NEGATIVEmg/dL Urine Urobilinogen NEGATIVEmg/dL Urine Leukocyte Esterase NEGATIVELeu/ul Urine Hemoglobin NEGATIVEmg/dL Urine Glucose NEGATIVEmg/dL Urine Total Protein NEGATIVEmg/dl Sodium Level 142mmol/L Potassium Level 4.4mmol/L Chloride Level 108mmol/L Carbon Dioxide Level 25mmol/L Anion Gap 13 Blood Urea Nitrogen 11mg/dl Creatinine 0.82mg/dl Glucose Level 93mg/dl Calcium Level 8.9mg/dl Total Bilirubin 0.1mg/dl Direct Bilirubin 0.00mg/dl Indirect Bilirubin 0.1mg/dl Aspartate Amino Transf (AST/SGOT) 15IU/L Alanine Aminotransferase (ALT/SGPT) 29IU/L Alkaline Phosphatase 90IU/L Total Protein 7.8g/dl Albumin 3.9g/dl Globulin 3.90g/dl Albumin/Globulin Ratio 1.00 Lipase 107U/L Stool Occult Blood NEGATIVE Current Medications Medications (Trade) Dose Ordered Sig/Azar Route PRN Reason Start Time Stop Time Status Last Admin Dose Admin Pantoprazole (Protonix Iv) 40 mg ONCE STAT IV 02/06/17 12:50 02/06/17 12:52 DC IV Flush 10 ml 10 ml STK-MED ONCE .ROUTE 02/06/17 13:18 02/06/17 13:19 DC 02/06/17 13:46 Sodium Chloride (NS) 100 ml @ ud STK-MED ONCE .ROUTE 02/06/17 13:18 02/06/17 13:19 DC 02/06/17 13:46 Iohexol (Omnipaque 300mg/ ml) 150 ml STK-MED ONCE .ROUTE 02/06/17 13:18 02/06/17 13:19 DC 02/06/17 13:46 EKG: Time: 10:39. Sinus rhythm. Ventricular rate 64, normal AL and QRS intervals. No acute ST segment elevation or depression. No axis deviation or ectopy. EP Impression: Normal EKG PROCEDURE: CT Abdomen and Pelvis with contrast. CLINICAL INDICATION: Abdominal pelvic pain. Distension. TECHNIQUE: CT scan of the abdomen and pelvis with contrast was performed on a multi-detector high-resolution CT scanner. The patient was scanned following the uncomplicated intravenous administration of 100 cc of Omnipaque 300. Coronal and sagittal reformatted images were obtained from the axial source images. Images were reviewed on a high-resolution PACS workstation. The total exam CTDI equals 13.96 mGy and the total exam DLP equals 904.86 mGy-cm. One or more of the following dose reduction techniques were used: - Automated exposure control. - Adjustment of the mA and/or kV according to patient size. - Use of iterative reconstruction technique. COMPARISON: None. FINDINGS: CT abdomen: The lung bases demonstrates bibasilar atelectasis. The heart size is normal, without pericardial thickening or effusion. There is focal short segment of colonic wall thickening with hyper enhancement at the level of the hepatic flexure measuring 4.6 cm. There is surrounding fat stranding. Findings are suggestive of malignancy. There are several hypodense masses throughout the liver, the largest measuring up to 13 mm along the posterior superior right hepatic lobe. The masses have an ill-defined appearance and suspicious for metastasis. The spleen is normal in size and homogeneous in density. The stomach is partially collapsed, but is grossly unremarkable. The pancreas as visualized is normal. The gallbladder and biliary tree are unremarkable and there is no evidence for biliary dilatation. The adrenal glands are symmetric and normal. The kidneys are symmetrically unremarkable as well. No renal calculus or obstructive uropathy or mass lesion is seen. The aorta is of normal caliber. Aortic atherosclerosis is present. There are several enlarged peewee caval lymph nodes, measuring up to 1.[address] short axis. [address] pelvis: The small bowel loops situated within the pelvis are unremarkable. The pelvic organs are normal. The pelvic sidewalls and inguinal regions are clear. The sigmoid colon and rectum are remarkable for sigmoid diverticulosis. No mass or adenopathy is seen. No free fluid is identified. No acute inflammation is seen. The bladder is normal. Sclerotic lesion in the right iliac bone, likely bone island. No other osteolytic or osteoblastic lesion is detected. IMPRESSION: 1. 4.6 cm segment of ascending colonic wall thickening at the level of hepatic flexure with associated hyper enhancement of bowel wall. No associated diverticular disease. Findings are suggestive of malignancy. 2. Several hypodense ill defined masses in the liver, measuring up to 12 mm. Findings are concerning for metastatic disease given the above findings. 3. Several enlarged peewee caval lymph nodes measuring up to 1.5 cm. 4. Sigmoid diverticular disease. RPTAT: [facility] Physician Kamini Date Time Electronically viewed and signed by Physician Kamini on 02/06/2017 14: 21 RC/ Procedures/MDM DOCUMENTS REVIEWED: ED nurse, Prior ED and admission 12/01/2016 for inferior wall STEMI. MEDICAL DECISION MAKIN-year-old male with a history of hypertension, dyslipidemia and inferior wall ST segment elevation myocardial infarction post PCI to the right coronary artery December 01, 2016 presents to the ED for evaluation of abdominal pain and anemia. Patient with severe anemia of 7.8 g/dL down from 10.7 on December 02, 2016. Stool Hemoccult is negative. He is on antiplatelet therapy. No chest pain, ischemic EKG changes or other signs of acute coronary syndrome. CT reveals a thickened area of colon suspicious for neoplasm along with multiple liver lesions that could be metastases. Patient required admission for further evaluation. Counseled patient regarding diagnosis, diagnostic results and plan for admission /transfer. Time: Patient accepted for transfer at [facility]. Accepting by Dr. Borja. Departure Diagnosis: Primary Impression: Severe anemia Additional Impressions: Abdominal pain Qualified Code: R10.84 - Generalized abdominal pain Colonic mass Lesion of liver H/O heart artery stent Condition: Serious (Stable for transfer) JACE CARDOSO MD Feb 06, 2017 13:32 JACE CARDOSO MD Feb 06, 2017 13:32
--- NOTE | 2017-02-06 14:22 | RADRPT ---
PROCEDURE: CT Abdomen and Pelvis with contrast. CLINICAL INDICATION: Abdominal pelvic pain. Distension. TECHNIQUE: CT scan of the abdomen and pelvis with contrast was performed on a multi-detector high- resolution CT scanner. The patient was scanned following the uncomplicated intravenous administrati on of 100 cc of Omnipaque 300. Coronal and sagittal reformatted images were obtained from the axial source images. Images were reviewed on a high-resolution PACS workstation. The total exam CTDI equa ls 13.96 mGy and the total exam DLP equals 904.86 mGy-cm. One or more of the following dose reduction techniques were used: - Automated exposure control. - Adjustment of the mA and/or kV according to patient size. - Use of iterative reconstruction technique. COMPARISON: None. FINDINGS: CT abdomen: The lung bases demonstrates bibasilar atelectasis. The heart size is normal, without pericardial th ickening or effusion. There is focal short segment of colonic wall thickening with hyper enhancement at the level of the hepatic flexure measuring 4.6 cm. There is surrounding fat stranding. Findings are suggestive of ma lignancy. There are several hypodense masses throughout the liver, the largest measuring up to 13 mm along the posterior superior right hepatic lobe. The masses have an ill-defined appearance and suspicious fo r metastasis. The spleen is normal in size and homogeneous in density. The stomach is partially collapsed, but is grossly unremarkable. The pancreas as visualized is normal. The gallbladder and biliary tree are unremarkable and there is no evidence for biliary dilatation. The adrenal glands are symmetric and normal. The kidneys are symmetrically unremarkable as well. No renal calculus or obstructive uropa thy or mass lesion is seen. The aorta is of normal caliber. Aortic atherosclerosis is present. There are several enlarged peewee caval lymph nodes, measuring up to 1.5 [address] in short axis. [address] pelvis: The small bowel loops situated within the pelvis are unremarkable. The pelvic organs are normal. T he pelvic sidewalls and inguinal regions are clear. The sigmoid colon and rectum are remarkable for sigmoid diverticulosis. No mass or adenopathy is seen. No free fluid is identified. No acute infl ammation is seen. The bladder is normal. Sclerotic lesion in the right iliac bone, likely bone island. No other osteolytic or osteoblastic lesion is detected. IMPRESSION: 1. 4.6 cm segment of ascending colonic wall thickening at the level of hepatic flexure with associa reinaldo hyper enhancement of bowel wall. No associated diverticular disease. Findings are suggestive of malignancy. 2. Several hypodense ill defined masses in the liver, measuring up to 12 mm. Findings are concerni ng for metastatic disease given the above findings. 3. Several enlarged peewee caval lymph nodes measuring up to 1.5 cm. 4. Sigmoid diverticular disease. RPTAT: [facility] Physician Kamini Date Time Electronically viewed and signed by Jag Corado Physician on 02/06/2017 14:21 RC/
[2017-02-06 15:39] VITALS: BP 120/75; PULSE 62; RESP 18; TEMP 98.6
== END 2017-02-06 16:19 | disposition short-term general hospital (02) ==
LOC: E/R 09:43
DX: R10.84 Generalized abdominal pain (principal); D64.9 Anemia, unspecified; K76.9 Liver disease, unspecified; K63.89 Other specified diseases of intestine; I10 Essential (primary) hypertension; Z79.82 Long term (current) use of aspirin; Z98.61 Coronary angioplasty status
CPT/HCPCS: 36415; 74177; 80053; 81003; 82270; 83690; 85025; 85610; 85730; 86850; 86900; 86901; 93005; 99285; C9113; Q9967

== ENCOUNTER 2017-02-08 12:42 | Emergency (ER) | payer BC ==
[~2017-02-08] VITALS: Ht 172.7 cm; Wt 90.0 kg
[~2017-02-08 12:42] MED LIST changes: +CLOP75TA27 PO; +METO100T13 PO; -METO50TA16 PO; -PRAS10TA6 PO; -VALS80TA29 PO
[2017-02-08 12:47] VITALS: Ht 172.7 cm; Wt 90.0 kg
--- NOTE | 2017-02-08 13:45 | ERA ---
ER Documentation Chief Complaint Date/Time DATE: 02/08/17 TIME: 13:44 Chief Complaint Low hemoglobin HPI The patient is a 51-year-old male, presenting to the ER because of low hemoglobin. He was seen in the ER 2 days ago and was transferred to [facility] for anemia and further workup for colonic malignancy. He however left AGAINST MEDICAL ADVICE when he went to [facility], he came back to the ER today and demanded blood transfusion and stated that he would pursue further colonic malignancy workup after blood transfusion. He complains of generalized weakness seen he had a stent PCI on December 01, 2016. He denies fever, neck pain, chest pain, dyspnea, abdominal pain, hematuria, hematochezia. He is trying to lose weight. He smokes socially, denies drinking Past medical history: Hypertension, dyslipidemia, CAD Past surgical history: Stent PCI ROS All systems reviewed and are negative except as per history of present illness. Medications Home Meds Active Scripts Aspirin (Aspirin) 81 Mg Chew, 81 MG PO DAILY, #90 TAB 3 Refills Prov:KEVIN SUTHERLAND 12/02/16 Reported Medications Clopidogrel Bisulfate (Clopidogrel) 75 Mg Tablet, 75 MG PO DAILY, #30 TAB 02/06/17 Metoprolol Succinate* (Toprol XL*) 100 Mg Tab.sr.24h, 100 MG PO DAILY, #30 TAB 02/06/17 Atorvastatin* (Atorvastatin*) 80 Mg Tablet, 80 MG PO QHS, #[address] STOPPED FOR 2 WEEKS 02/06/17 Discontinued Scripts Valsartan (Valsartan) 80 Mg Tablet, 80 MG PO DAILY, #60 TAB 1 Refill Prov:KEVIN SUTHERLAND 12/02/16 Metoprolol Succinate* (Toprol XL*) 50 Mg Tab.er.24h, 50 MG PO DAILY, #60 1 Refill Prov:KEVIN SUTHERLAND 12/02/16 Atorvastatin* (Atorvastatin*) 80 Mg Tablet, 80 MG PO HS, #60 TAB 1 Refill Prov:KEVIN SUTHERLAND 12/02/16 Prasugrel Hydrochloride* (Effient*) 10 Mg Tablet, 10 MG PO DAILY, #60 TAB 3 Refills Prov:KEVIN SUTHERLAND 12/02/16 Allergies Allergies: Coded Allergies: No Known Allergy (Unverified , 02/08/17) PMhx/Soc History of Surgery: No Anesthesia Reaction: No Hx Neurological Disorder: No Hx Respiratory Disorders: No Hx Cardiac Disorders: Yes (HTN, [place]) Hx Psychiatric Problems: No Hx Miscellaneous Medical Probl: No Hx Substance Use: No Hx Tobacco Use: No Physical Exam Vitals Vital Signs Date Time Temp Pulse Resp B/P Pulse Ox O2 Delivery O2 Flow Rate FiO2 02/08/17 12:47 98.1 70 18 122/78 98 Physical Exam Const: No acute distress. Pale Head: Atraumatic. Eyes: Normal Conjunctiva. ENT: Normal External Ears, Nose and Mouth. Neck: Full range of motion. No meningismus. Resp: Clear to auscultation bilaterally. Cardio: Regular rate and rhythm. Abd: Soft, non distended, normal bowel sounds, non tender. Skin: No petechiae or rashes. Back: No midline or flank tenderness. Ext: No cyanosis, or edema. Neur: Awake and alert. No focal deficit Psych: Normal Mood and Affect. Result Diagram: 02/08/17 1400 02/08/17 1400 Results 24 hrs Laboratory Tests Test 02/08/17 14:00 White Blood Count 6.510^3/ul Red Blood Count 3.7410^6/ul Hemoglobin 7.9g/dl Hematocrit 27.1% Mean Corpuscular Volume 72.5fl Mean Corpuscular Hemoglobin 21.1pg Mean Corpuscular Hemoglobin Concent 29.2g/dl Red Cell Distribution Width 15.0% Platelet Count 64884^3/UL Mean Platelet Volume 10.8fl Neutrophils % 56.6% Lymphocytes % 31.2% Monocytes % 8.7% Eosinophils % 2.0% Basophils % 1.2% Nucleated Red Blood Cells % 0.0/100WBC Neutrophils # (Manual) 3.710^3/ul Lymphocytes # 2.010^3/ul Monocytes # 0.610^3/ul Eosinophils # 0.110^3/ul Basophils # 0.110^3/ul Nucleated Red Blood Cells # 0.010^3/ul Prothrombin Time 12.9Sec Prothrombin Time Ratio 1.0 INR International Normalized Ratio 0.97 Activated Partial Thromboplast Time 24.3Sec Sodium Level 142mmol/L Potassium Level 4.1mmol/L Chloride Level 106mmol/L Carbon Dioxide Level 28mmol/L Anion Gap 12 Blood Urea Nitrogen 12mg/dl Creatinine 0.80mg/dl Glucose Level 97mg/dl Calcium Level 9.1mg/dl Total Bilirubin 0.1mg/dl Direct Bilirubin 0.00mg/dl Indirect Bilirubin 0.1mg/dl Aspartate Amino Transf (AST/SGOT) 19IU/L Alanine Aminotransferase (ALT/SGPT) 21IU/L Alkaline Phosphatase 88IU/L Total Protein 7.6g/dl Albumin 3.8g/dl Globulin 3.80g/dl Albumin/Globulin Ratio 1.00 Procedures/MDM MEDICAL MAKING DECISION: The patient is a 51-year-old male, presenting with acute anemia of unclear etiology most likely due to colonic malignancy, no obvious evidence of acute gastrointestinal bleeding. He does have abnormal CT scan that is concerning for colonic malignancy. He was transfused 1 unit of breath packed red blood cell and recommended admission for further evaluation to rule out colonic malignancy. The differential diagnoses considered include but are not limited to gastritis, peptic ulcer disease, esophageal varices, Marylu-Keys tear, carcinoma, polyp, hemorrhoid, fissure, diverticulosis, angiodysplasia. The patient was admitted to the hospital in, accepted to [facility] in [place]; however he did not want to go. He stated that he is in the process of changing his medical insurance so he can go to [facility] for further evaluation for colonic malignancy The patient signed out AGAINST MEDICAL ADVICE. Risks, benefits, alternatives were explained to the patient. Risks include but not limited to and permanent disability Departure Diagnosis: Primary Impression: Anemia Additional Impression: Colonic mass Condition: Stable Additional Instructions: The patient signed out AGAINST MEDICAL ADVICE. Risks, benefits, alternatives were explained to the patient. Risks include but not limited to and permanent disability POLA HEREDIA MD Feb 08, 2017 13:45
[2017-02-08 14:37] LABS: BASOPHIL # 0.1 10^3/ul (0.0-0.1); BASOPHILS % 1.2 % (0.0-2.0); EOSINOPHILS # 0.1 10^3/ul (0.0-0.5); HEMATOCRIT 27.1 % (42.0-52.0); HEMOGLOBIN 7.9 g/dl (14.0-18.0); LYMPHOCYTES % 31.2 % (15.0-51.0); MEAN CORPUSCULAR HEMOGLOBIN 21.1 pg (29.0-33.0); MEAN CORPUSCULAR HGB CONC 29.2 g/dl (32.0-37.0); MEAN CORPUSCULAR VOLUME 72.5 fl (82.0-101.0); MEAN PLATELET VOLUME 10.8 fl (7.4-10.4); MONOCYTE # 0.6 10^3/ul (0.3-0.9); MONOCYTES % 8.7 % (0.0-11.0); NEUTROPHILS % 56.6 % (39.0-77.0); PLATELET COUNT 352 10^3/UL (140-415); RED BLOOD COUNT 3.74 10^6/ul (4.70-6.10); WHITE BLOOD COUNT 6.5 10^3/ul (4.8-10.8)
[2017-02-08 15:00] LABS: PARTIAL THROMBOPLASTIN TIME 24.3 Sec (25.0-35.0)
[2017-02-08 15:03] LABS: ALBUMIN 3.8 g/dl (3.3-4.9); BILIRUBIN,INDIRECT 0.1 mg/dl (0-1.1); BILIRUBIN,TOTAL 0.1 mg/dl (0.2-1.3); CALCIUM 9.1 mg/dl (8.4-10.2); CREATININE 0.8 mg/dl (0.61-1.24); POTASSIUM 4.1 mmol/L (3.5-5.1); TOTAL PROTEIN 7.6 g/dl (6.1-8.1)
[2017-02-08 15:06] LABS: INR 0.97; PROTIME 12.9 Sec (12.2-14.2)
[2017-02-08 19:13] VITALS: BP 134/88; PULSE 73; RESP 16
== END 2017-02-08 19:53 | disposition left against medical advice (07) ==
LOC: E/R 12:42
DX: D64.9 Anemia, unspecified (principal); K63.89 Other specified diseases of intestine; I10 Essential (primary) hypertension; I25.10 Atherosclerotic heart disease of native coronary artery without angina pectoris; Z79.01 Long term (current) use of anticoagulants
CPT/HCPCS: 36415; 36430; 80053; 85025; 85610; 85730; 86850; 86900; 86901; 86920; 93005; 99284; P9016